=== PATIENT | female | born 1990 | race Caucasian/White ===

== ENCOUNTER → 2022-12-11 | Outpatient (CLI) | payer OTHER ==
--- NOTE | 2022-12-11 17:10 | Diagnostic Imaging Report ---
INDICATION: . COMPARISON: None. TECHNIQUE: Multiple real-time grayscale images were obtained over the gravid uterus. FINDINGS: The cervix measures 3.8 cm in length. No funneling is seen. The placenta is about 3.1 cm away from the internal os and is located posteriorly. There is no evidence of previa. There is a single live intrauterine gestation in variable presentation, beginning in breech and ending in cephalic. The heart rate measures 132 BPM. The amniotic fluid index measures 12.6 cm. Anatomic survey is suboptimal due to maternal body habitus. Four-chamber heart is suboptimally visualized. The stomach is seen. The kidneys are seen. The bladder is seen. The spine is not well seen. The cerebellum and cisterna magna are seen. The lateral ventricle is seen. Umbilical arteries are seen, consistent with a three-vessel cord. The cord insertion is seen. Biometrical measurements are as follows: Biparietal 4.25 cm, age 19 weeks 0 days. Head circumference 16.41 cm, age 19 weeks 0 days. Abdominal circumference 14.24 cm, age 19 weeks 5 days. Femur length 3.33 cm, age 20 weeks 3 days. Sonographic estimate age: 19 weeks 5 days. Sonographic estimated date of delivery: 05/02/2023. Estimated Weight: 318 gm (+/- 47 gm). LMP percentile: 38%. heart rate: 132 beats per minute. number: 1 of 1. IMPRESSION: 1. Single live intrauterine gestation measuring at 19 weeks and 5 days which is within range of the clinical dates. 2. No abnormality seen on anatomic survey. The four-chamber heart and spine are suboptimally visualized. Dictated by: Dictated on workstation # [id number]
== END ==
LOC: RAD 13:24
PROVIDERS: ATTEND Nurse Practitioner Women's Health
DX: Z34.02 Encounter for supervision of normal first pregnancy, second trimester (principal); Z3A.19 19 weeks gestation of pregnancy
CPT/HCPCS: 76805

== ENCOUNTER 2023-04-30 06:36 | Inpatient (IN) | payer OTHER ==
[2023-04-30] VITALS (80 sets, daily range): BP systolic 90–139; BP diastolic 49–90
[~2023-04-30] VITALS: Ht 168 cm; Wt 129.2 kg
[2023-04-30] MEDS ORDERED: LIDOCAINE/EPI 2% 1:200,00 (XYLOCAINE) 20 ML VIAL INJ PRN (07:30)
[2023-04-30] MEDS ORDERED: D5 LR IV SOLUTION 1,000 ML IV SCH (07:30)
[2023-04-30] MEDS ORDERED: D5 LR IV SOLUTION 1,000 ML IV ONE (07:33)
[2023-04-30 07:35] LABS: BASOPHILS % (AUTO) 0 % (0-10); EOSINOPHILS # (AUTO) 0.1 10^3/uL (0.0-0.3); EOSINOPHILS % (AUTO) 1 % (0-10); HEMATOCRIT 33 % (35-52); HEMOGLOBIN 11.7 g/dL (11.5-16.0); LYMPHOCYTES # (AUTO) 2.1 10^3/uL (1.0-4.0); LYMPHOCYTES % (AUTO) 18 % (12-44); MEAN CORPUSCULAR HEMOGLOBIN 33 pg (25-34); MEAN CORPUSCULAR HGB CONC 35 g/dL (32-36); MEAN CORPUSCULAR VOLUME 93 fL (80-99); MEAN PLATELET VOLUME 9.9 fL (9.0-12.2); MONOCYTES # (AUTO) 0.9 10^3/uL (0.0-1.0); MONOCYTES % (AUTO) 8 % (0-12); NEUTROPHILS # (AUTO) 8.3 10^3/uL (1.8-7.8); NEUTROPHILS % (AUTO) 73 % (42-75); PLATELET COUNT 204 10^3/uL (130-400); WHITE BLOOD COUNT 11.4 10^3/uL (4.3-11.0)
--- NOTE | 2023-04-30 07:55 | History & Physical-OB ---
OB - Chief Complaint & HPI Date/Time Date of Admission: Date of Admission: Apr 30, 2023 at 06:36 Date seen by a Provider: Apr 30, 2023 Time Seen by a Provider: 07:55 Chief Complaint/History OB-Reason for Admission/Chief: Induction of Labor Hx : 3 Hx Para: 2 Expected Date of Delivery: Apr 30, 2023 Gestational Age in Weeks: 40 Gestational Age in Days: 0 Indication for induction: post dates Admission Nurse Assessment Rev: Yes History of Labs O pos Antibody neg RI RPR NR HBsAg NR HIV NR GC neg GBS neg Allergies and Home Medications Allergies Coded Allergies: No Known Drug Allergies (Unverified , 04/30/23) Patient Home Medication List Home Medication List Reviewed: Yes OB - History Hx of Present Care: Yes Ultrasounds: Normal mid trimester US Obstetrical Complications: None Medical Complications: None Patient Past Medical History nc OB - Admission Exam Physical Exam HEENT: NCAT Heart: Rhythm Normal Abdomen: Gravid Extremities: Normal Reflexes: Normal Cervical Dilatation: 3cm Effacement: 75% Station: -1 Membranes: Intact Heart Rate: 130's Accelerations: Accelerations Present Decelerations: No Decelerations Short Term Variability: Present Pot Tender Variability: Average (6-25) Contractions on Admission: 6-10 Minutes Apart Intensity: Mild Barriga Scoring Tool (Modified) Dilation (cm): 3-4cm (2) Effacement (%): 51-79% (2) Descent/Station: -1,0 (2) Cervix Consistency: Soft (2) Cervix Position: Anterior (2) Barriga Score: 12 Labs Laboratory Tests Test 04/30/23 07:15 Range/Units White Blood Count 11.4 H 4.3-11.0 10^3/uL Red Blood Count 3.59 L 3.80-5.11 10^6/uL Hemoglobin 11.7 11.5-16.0 g/dL Hematocrit 33 L 35-52 % Mean Corpuscular Volume 93 80-99 fL Mean Corpuscular Hemoglobin 33 25-34 pg Mean Corpuscular Hemoglobin Concent 35 32-36 g/dL Red Cell Distribution Width 13.4 10.0-14.5 % Platelet Count 204 130-400 10^3/uL Mean Platelet Volume 9.9 9.0-12.2 fL Immature Granulocyte % (Auto) 0 % Neutrophils (%) (Auto) 73 42-75 % Lymphocytes (%) (Auto) 18 12-44 % Monocytes (%) (Auto) 8 0-12 % Eosinophils (%) (Auto) 1 0-10 % Basophils (%) (Auto) 0 0-10 % Neutrophils # (Auto) 8.3 H 1.8-7.8 10^3/uL Lymphocytes # (Auto) 2.1 1.0-4.0 10^3/uL Monocytes # (Auto) 0.9 0.0-1.0 10^3/uL Eosinophils # (Auto) 0.1 0.0-0.3 10^3/uL Basophils # (Auto) 0.0 0.0-0.1 10^3/uL Immature Granulocyte # (Auto) 0.0 0.0-0.1 10^3/uL Syphilis Total Antibody Negative Negative OB - Assessment/Plan/Diagnosis Assessment Assessment: induction of labor Admission Dx 32 yo @ 40.0 weeks GBS neg Admission Status: Inpatient Order (span 2 midnights) Reason for Inpatient Admission: IOL at 40 weeks Plan Plan: Induction Induction Method: JERROD STEWART DO Apr 30, 2023 07:55
[2023-04-30] MEDS ORDERED: OXYTOCIN PRE-MIX DRIP 500 ML IV SCH ×2 (08:00→08:30)
[2023-04-30] MEDS ORDERED: PNV-9 PO (08:07)
[2023-04-30] MEDS ORDERED: OMEP40CA6 PO (08:07)
[2023-04-30] MEDS ORDERED: ASPI-999 PO (08:08)
[2023-04-30] MEDS ORDERED: fentaNYL 2 mcg/ml BUPIVA 0.125 100 ML ONE (11:51)
[2023-04-30] MEDS ORDERED: METOCLOPRAMIDE INJ 10 MG/2 ML (REGLAN) IV PRN (13:15)
[2023-04-30] MEDS ORDERED: LACTATED RINGERS 1,000 ML IV SCH (13:15)
[2023-04-30] MEDS ORDERED: fentaNYL 2 mcg/ml BUPIVA 0.125 100 ML EPI SCH (13:15)
[2023-04-30] MEDS ORDERED: NALOXONE 0.4 MG/ML 1 ML (NARCAN) VIAL IV PRN ×3 (13:15→19:45)
[2023-04-30] MEDS ORDERED: ONDANSETRON 4 MG/2 ML (SDV) Z0FRAN IV PRN (13:15)
[2023-04-30] MEDS ORDERED: diphenhydrAMINE 50 MG/ML INJ (BENADRYL) IV PRN (13:15)
[2023-04-30] MEDS ORDERED: CATHETER FLUSH 10 ML SYR IV SCH ×2 (14:00→22:00)
[2023-04-30] MEDS: OXYTOCIN PRE-MIX DRIP 500 ML IV SCH ×2 (19:28→19:56)
[2023-04-30] MEDS ORDERED: WITCH HAZEL(TUCKS) 40 EA JAR TOP PRN (19:45)
[2023-04-30] MEDS ORDERED: DIBUCAINE 1% OINTMENT 28 GM TUBE TOP PRN (19:45)
[2023-04-30] MEDS ORDERED: MEASLES,MUMPS,RUBELLA 1 EA INJ SQ ONE (19:45)
[2023-04-30] MEDS ORDERED: TETANUS,DIPTH,PERTUSS P/F (BOOSTRIX) 0.5 ML VIAL IM ONE (19:45)
[2023-04-30] MEDS ORDERED: BENZOCAINE/MENTHOL (DERMOPLAST) 56 ML CAN TP PRN (19:45)
--- NOTE | 2023-04-30 19:48 | OB Labor & Delivery Record ---
L&D History Date of Service Date of Service: Apr 30, 2023 History Expected Date of Delivery: Apr 30, 2023 Gestational Age in Weeks: 40 Hx : 3 Hx Para: 2 Complications Events: Routine care Operative Indications (Cesarea: N/A-Vaginal Delivery Intrapartal Events: None L&D Stage1 Stage One Onset of Labor - Date: Apr 30, 2023 Monitors and Tracing Monitor Mode: Internal Heart Rate: 135 Monitor Accelerations: Uniform Monitor Decelerations: Variable Charter Representative Variability: Average (6-10) Short Term Variability: Present Presentation: Vertex Vital Signs VS - Last 72 Hours, by Label 04/30/23 04/30/23 04/30/23 04/30/23 07:45 09:00 09:05 09:15 Temp 36.4 36.4 Pulse 89 88 90 86 Resp 18 18 B/P (MAP) 126/66 (86) 119/75 (90) 118/73 (88) Pulse Ox 98 98 O2 Delivery Room Air Room Air 04/30/23 04/30/23 04/30/23 04/30/23 09:30 09:45 10:00 10:15 Pulse 81 81 87 78 B/P (MAP) 119/61 (80) 110/62 (78) 108/62 (77) 116/64 (81) 04/30/23 04/30/23 04/30/23 04/30/23 10:30 10:45 11:00 11:15 Temp 36.9 Pulse 81 82 87 89 B/P (MAP) 119/71 (87) 118/66 (83) 117/62 (80) 138/68 (91) 04/30/23 04/30/23 04/30/23 04/30/23 11:30 11:45 12:00 12:15 Pulse 87 82 80 81 B/P (MAP) 134/72 (92) 134/72 (92) 128/69 (88) 125/70 (88) 04/30/23 04/30/23 04/30/23 04/30/23 12:30 12:33 12:36 12:39 Pulse 91 85 97 91 Resp 18 18 18 18 B/P (MAP) 131/85 (100) 127/75 (92) 136/84 (101) 124/73 (90) Pulse Ox 99 99 96 O2 Delivery Room Air Room Air Room Air 04/30/23 04/30/23 04/30/23 04/30/23 12:42 12:45 12:48 12:51 Pulse 96 83 88 92 Resp 18 18 18 18 B/P (MAP) 114/65 (81) 113/60 (77) 120/65 (83) 123/67 (85) Pulse Ox 97 98 98 O2 Delivery Room Air Room Air Room Air 04/30/23 04/30/23 04/30/23 04/30/23 12:54 13:02 13:07 13:12 Pulse 82 86 86 87 Resp 18 18 18 18 B/P (MAP) 114/63 (80) 119/61 (80) 115/58 (77) 114/58 (76) Pulse Ox 98 97 97 97 O2 Delivery Room Air Room Air Room Air Room Air 04/30/23 04/30/23 04/30/23 04/30/23 13:17 13:22 13:27 13:32 Pulse 88 81 80 83 Resp 18 18 18 18 B/P (MAP) 115/61 (79) 125/65 (85) 114/58 (76) 113/60 (77) Pulse Ox 98 98 99 98 O2 Delivery Room Air Room Air Room Air Room Air 04/30/23 04/30/23 04/30/23 04/30/23 13:37 13:42 13:47 13:52 Pulse 86 84 87 88 Resp 18 18 18 18 B/P (MAP) 123/58 (79) 119/63 (81) 114/57 (76) 113/62 (79) Pulse Ox 99 98 98 97 O2 Delivery Room Air Room Air Room Air Room Air 04/30/23 04/30/23 04/30/23 04/30/23 13:57 14:02 14:07 14:12 Pulse 75 76 77 86 Resp 18 18 18 18 B/P (MAP) 95/54 (68) 105/51 (69) 100/52 (68) 105/51 (69) Pulse Ox 97 98 96 98 O2 Delivery Room Air Room Air Room Air Room Air 04/30/23 04/30/23 04/30/23 04/30/23 14:17 14:22 14:27 14:32 Pulse 77 80 82 78 Resp 18 18 18 18 B/P (MAP) 103/53 (70) 103/54 (70) 105/52 (69) 100/50 (67) Pulse Ox 97 97 96 97 O2 Delivery Room Air Room Air Room Air Room Air 04/30/23 04/30/23 04/30/23 04/30/23 14:37 14:42 14:47 14:52 Pulse 73 99 77 77 Resp 18 18 B/P (MAP) 100/50 (67) 102/57 (72) 100/58 (72) 95/54 (68) Pulse Ox 96 99 98 98 O2 Delivery Room Air Room Air Room Air Room Air 04/30/23 04/30/23 04/30/23 04/30/23 15:02 15:07 15:12 15:17 Pulse 77 76 82 76 B/P (MAP) 90/51 (64) 99/52 (68) 107/52 (70) 94/49 (64) Pulse Ox 97 97 O2 Delivery Room Air Room Air 04/30/23 04/30/23 04/30/23 04/30/23 15:22 15:27 15:32 15:37 Pulse 78 75 79 78 B/P (MAP) 98/54 (69) 92/55 (67) 105/54 (71) 104/53 (70) 04/30/23 04/30/23 04/30/23 04/30/23 15:42 15:47 15:52 15:57 Pulse 77 76 79 82 B/P (MAP) 96/54 (68) 101/51 (68) 100/52 (68) 101/51 (68) 04/30/23 04/30/23 04/30/23 04/30/23 16:15 16:30 16:45 17:00 Pulse 86 80 82 95 B/P (MAP) 137/70 (92) 134/70 (91) 129/74 (92) 120/63 (82) 04/30/23 04/30/23 04/30/23 04/30/23 17:15 17:30 17:45 18:00 Temp 37.9 Pulse 93 90 92 91 B/P (MAP) 126/73 (90) 129/65 (86) 116/63 (80) 120/59 (79) 04/30/23 04/30/23 04/30/23 04/30/23 18:15 18:30 18:45 19:00 Pulse 86 89 91 89 B/P (MAP) 139/78 (98) 128/71 (90) 103/56 (72) 105/58 (74) Rupture of Membranes Spontaneous Ruture of Membrane: No Amniotic Membrane Rupture Time: 07:55 Amniotic Membrane Fluid Desc.: Clear Vaginal Bleeding Description: Normal Show Induction/Anesthesia Epidural Cath Placement - Time: 1231 Progress/Notes Patient admitted for postdates IOL. Arom performed followed by pitocin augmentation to max dose of 16 mu. She progressed with epidural analgesia to complete and + 2 station. L&D Stage2 Stage Two Stage II Date: Apr 30, 2023 Monitors and Tracing Monitor Mode: External Heart Rate: 135 Monitor Accelerations: Uniform Monitor Decelerations: Variable Custodial Variability: Average (6-10) Short Term Variability: Present Position: Right Occiput Anterior Presentation: Vertex Cord Descript/Complications Cord Vessel Description: 3 Vessels Delivery Type Delivery Method: Spontaneous Vaginal Anterior Shoulder: Left Episiotomy/Perineal Laceration Laceraction(s)/Extensions: Yes Episiotomy Description: Perineal Extension/lac, 1st degree (laceration repaired using 3-0 rapide vicryl in usual fashion.) Condition of Infant Delivery 1 minute Comment: 7 5 minute Comment: 9 Notes Live female weight pending. Condition of Condition of Infant: Living Exam: No Observed Abnormalities Resuscitation Resuscitation: N/A - Spontaneous Resp L&D Stage3 Stage Three Stage III Date: Apr 30, 2023 Pictocin Pitocin Administration mu/min: 16 Pitocin ml/hr: 16 Pitocin Administration Comment: 30 mu wide open after delivery of placenta Placenta Delivery Placenta Delivery: Spontaneous Delivery Summary Summary Estimated blood loss (mL): 300 Attending at delivery: Jerrod Ferrell DO Condition of Delivery Examined: Cervix Examined, Uterus Explored Post Hemorrhage: No Condition of Mother stable Condition of (s) stable JERROD FERRELL DO Apr 30, 2023 19:48
[2023-04-30] MEDS: IBUPROFEN 600 MG (MOTRIN) TAB PO SCH (22:15)
[2023-04-30] MEDS: ACETAMINOPHEN 500 MG TAB (TYLENOL) PO SCH (22:15)
[2023-04-30] MEDS: DOCUSATE SODIUM 100 MG (COLACE) CAP PO SCH (22:15)
[2023-05-01 01:29] VITALS: BP 118/65
[2023-05-01] MEDS: ACETAMINOPHEN 500 MG TAB (TYLENOL) PO SCH ×4 (03:43→22:35)
[2023-05-01] MEDS: IBUPROFEN 600 MG (MOTRIN) TAB PO SCH ×4 (03:43→22:35)
[2023-05-01 05:24] LABS: BASOPHILS # (AUTO) 0.1 10^3/uL (0.0-0.1); BASOPHILS % (AUTO) 0 % (0-10); EOSINOPHILS # (AUTO) 0.2 10^3/uL (0.0-0.3); EOSINOPHILS % (AUTO) 1 % (0-10); HEMATOCRIT 33 % (35-52); HEMOGLOBIN 11.6 g/dL (11.5-16.0); LYMPHOCYTES # (AUTO) 2.6 10^3/uL (1.0-4.0); LYMPHOCYTES % (AUTO) 13 % (12-44); MEAN CORPUSCULAR HEMOGLOBIN 32 pg (25-34); MEAN CORPUSCULAR HGB CONC 35 g/dL (32-36); MEAN CORPUSCULAR VOLUME 93 fL (80-99); MEAN PLATELET VOLUME 9.9 fL (9.0-12.2); MONOCYTES # (AUTO) 1.4 10^3/uL (0.0-1.0); MONOCYTES % (AUTO) 7 % (0-12); NEUTROPHILS # (AUTO) 15.5 10^3/uL (1.8-7.8); NEUTROPHILS % (AUTO) 78 % (42-75); PLATELET COUNT 188 10^3/uL (130-400); WHITE BLOOD COUNT 19.8 10^3/uL (4.3-11.0)
[2023-05-01 06:17] LABS: LYMPHOCYTES % (MANUAL) 15 %; MONOCYTES % (MANUAL) 5 %; NEUTROPHILS % (MANUAL) 80 %; RBC MORPH NORMAL
[2023-05-01] MEDS ORDERED: PRENATAL VITAMIN 1 EA TAB PO SCH (07:00)
--- NOTE | 2023-05-01 07:17 | Postpartum Progress Note ---
Note Note Day # 1 Subjective: Patient is without complaints. Ambulating, voiding. Tolerating a regular diet without nausea or vomiting. Normal lochia. Pain is well controlled with oral pain medications. Objective: Physical Exam: General - Alert and oriented, no apparent distress Abdomen - Soft, appropriately tender to palpation, non-distended, fundus firm at umbilicus Extremities - no edema, negative Nik's bilaterally Assessment: PPD 1 NVD Plan: Routine care. Encourage breast feeding. Encourage ambulation. Ferrous sulfate supplementation. Plan for discharge tomorrow Vitals - Labs Vital Signs - I&O Vital Signs Date Time Temp Pulse Resp B/P (MAP) Pulse Ox O2 Delivery O2 Flow Rate FiO2 05/01/23 01:29 36.0 84 18 118/65 (82) 97 Room Air 04/30/23 21:11 37.5 102 119/58 (78) 04/30/23 20:56 93 119/56 (77) 04/30/23 20:41 95 122/59 (80) 04/30/23 20:26 96 106/65 (79) 04/30/23 20:11 92 104/59 (74) 04/30/23 19:56 88 118/56 (76) 04/30/23 19:41 99 103/52 (69) 04/30/23 19:26 37.5 89 137/90 (106) 04/30/23 19:00 89 105/58 (74) 04/30/23 18:45 91 103/56 (72) 04/30/23 18:30 89 128/71 (90) 04/30/23 18:15 86 139/78 (98) 04/30/23 18:00 91 120/59 (79) 04/30/23 17:45 37.9 92 116/63 (80) 04/30/23 17:30 90 129/65 (86) 04/30/23 17:15 93 126/73 (90) 04/30/23 17:00 95 120/63 (82) 04/30/23 16:45 82 129/74 (92) 04/30/23 16:30 80 134/70 (91) 04/30/23 16:15 86 137/70 (92) 04/30/23 15:57 82 101/51 (68) 04/30/23 15:52 79 100/52 (68) 04/30/23 15:47 76 101/51 (68) 04/30/23 15:42 77 96/54 (68) 04/30/23 15:37 78 104/53 (70) 04/30/23 15:32 79 105/54 (71) 04/30/23 15:27 75 92/55 (67) 04/30/23 15:22 78 98/54 (69) 04/30/23 15:17 76 94/49 (64) 04/30/23 15:12 82 107/52 (70) 04/30/23 15:07 76 99/52 (68) 97 Room Air 04/30/23 15:02 77 90/51 (64) 97 Room Air 04/30/23 14:52 77 95/54 (68) 98 Room Air 04/30/23 14:47 77 100/58 (72) 98 Room Air 04/30/23 14:42 99 18 102/57 (72) 99 Room Air 04/30/23 14:37 73 18 100/50 (67) 96 Room Air 04/30/23 14:32 78 18 100/50 (67) 97 Room Air 04/30/23 14:27 82 18 105/52 (69) 96 Room Air 04/30/23 14:22 80 18 103/54 (70) 97 Room Air 04/30/23 14:17 77 18 103/53 (70) 97 Room Air 04/30/23 14:12 86 18 105/51 (69) 98 Room Air 04/30/23 14:07 77 18 100/52 (68) 96 Room Air 04/30/23 14:02 76 18 105/51 (69) 98 Room Air 04/30/23 13:57 75 18 95/54 (68) 97 Room Air 04/30/23 13:52 88 18 113/62 (79) 97 Room Air 04/30/23 13:47 87 18 114/57 (76) 98 Room Air 04/30/23 13:42 84 18 119/63 (81) 98 Room Air 04/30/23 13:37 86 18 123/58 (79) 99 Room Air 04/30/23 13:32 83 18 113/60 (77) 98 Room Air 04/30/23 13:27 80 18 114/58 (76) 99 Room Air 04/30/23 13:22 81 18 125/65 (85) 98 Room Air 04/30/23 13:17 88 18 115/61 (79) 98 Room Air 04/30/23 13:12 87 18 114/58 (76) 97 Room Air 04/30/23 13:07 86 18 115/58 (77) 97 Room Air 04/30/23 13:02 86 18 119/61 (80) 97 Room Air 04/30/23 12:54 82 18 114/63 (80) 98 Room Air 04/30/23 12:51 92 18 123/67 (85) 98 Room Air 04/30/23 12:48 88 18 120/65 (83) 04/30/23 12:45 83 18 113/60 (77) 98 Room Air 04/30/23 12:42 96 18 114/65 (81) 97 Room Air 04/30/23 12:39 91 18 124/73 (90) 04/30/23 12:36 97 18 136/84 (101) 96 Room Air 04/30/23 12:33 85 18 127/75 (92) 99 Room Air 04/30/23 12:30 91 18 131/85 (100) 99 Room Air 04/30/23 12:15 81 125/70 (88) 04/30/23 12:00 80 128/69 (88) 04/30/23 11:45 82 134/72 (92) 04/30/23 11:30 87 134/72 (92) 04/30/23 11:15 89 138/68 (91) 04/30/23 11:00 36.9 87 117/62 (80) 04/30/23 10:45 82 118/66 (83) 04/30/23 10:30 81 119/71 (87) 04/30/23 10:15 78 116/64 (81) 04/30/23 10:00 87 108/62 (77) 04/30/23 09:45 81 110/62 (78) 04/30/23 09:30 81 119/61 (80) 04/30/23 09:15 86 118/73 (88) 04/30/23 09:05 36.4 90 18 98 Room Air 04/30/23 09:00 88 119/75 (90) 04/30/23 07:45 36.4 89 18 126/66 (86) 98 Room Air I & O 05/01/23 07:00 Intake Total 3000 ml Balance 3000 ml Labs Laboratory Tests 05/01/23 05:13: White Blood Count 19.8H, Red Blood Count 3.58L, Hemoglobin 11.6, Hematocrit 33L, Mean Corpuscular Volume 93, Mean Corpuscular Hemoglobin 32, Mean Corpuscular Hemoglobin Concent 35, Red Cell Distribution Width 13.4, Platelet Count 188, Mean Platelet Volume 9.9, Immature Granulocyte % (Auto) 1, Neutrophils (%) (Auto) 78H, Lymphocytes (%) (Auto) 13, Monocytes (%) (Auto) 7, Eosinophils (%) (Auto) 1, Basophils (%) (Auto) 0, Neutrophils # (Auto) 15.5H, Lymphocytes # (Auto) 2.6, Monocytes # (Auto) 1.4H, Eosinophils # (Auto) 0.2, Basophils # (Auto) 0.1, Immature Granulocyte # (Auto) 0.1, Neutrophils % (Manual) 80, Lymphocytes % (Manual) 15, Monocytes % (Manual) 5, Blood Morphology Comment NORMAL JERROD FERRELL DO May 01, 2023 07:17
[2023-05-01 08:15] VITALS: BP 122/79
[2023-05-01] MEDS: DOCUSATE SODIUM 100 MG (COLACE) CAP PO SCH ×2 (08:16→22:13)
[2023-05-01] MEDS ORDERED: FERROUS SULF 325 MG (IRON) TAB PO SCH (09:00)
--- NOTE | 2023-05-01 09:18 | Discharge Inst-Women's Service ---
Discharge Inst-Women's Serv Depart Medication/Instructions New, Converted or Re-Newed RX: Transmitted to Pharmacy Final Diagnosis PPD 1 NVD Problems Reviewed?: Yes Consults/Follow Up Additional Follow Up: Yes Orders/Referrals Dr. Ferrell in 6 weeks Activity Activity: Activity as Tolerated Driving Instructions: No Driving for 1 Week NO SMOKING: NO SMOKING Nothing Inside Vagina: No Douching, No Onsted, No Tampons Diet Discharge Diet: No Restrictions Symptoms to Report to : Bleeding Excessive, Pain Increased, Fever Over 101 Degrees F, Vaginal Bleeding Increase, Questions/Concerns For Any Problems or Questions: Contact Your Physician JERROD FERRELL DO May 01, 2023 09:18
[2023-05-01] MEDS ORDERED: FERR325T24 PO (09:20)
[2023-05-01] MEDS ORDERED: ACET-93 PO (09:20)
[2023-05-01] MEDS ORDERED: DIBU30OI TOP (09:20)
[2023-05-01] MEDS ORDERED: DOCU100C37 PO (09:20)
[2023-05-01] MEDS ORDERED: IBUP-844 PO (09:20)
--- NOTE | 2023-05-01 09:24 | Anesthesia-Regional Post-Op ---
Regional Patient Condition Mental Status: Alert, Oriented x3 Circulation: Same as Pre-Op Headache: Absent Sensation: Full Recovery Motor Block: Absent Post Op Complications Complications None Follow Up Care/Instructions Patient Instructions None needed. Anesthesia/Patient Condition Patient is doing well, no complaints, stable vital signs, no apparent adverse anesthesia problems. No complications reported per nursing. ROXANA BARBER CRNA May 01, 2023 09:24
[2023-05-01 12:00] VITALS: BP 117/65
[2023-05-01 16:04] VITALS: BP 134/77
[2023-05-01 22:13] VITALS: BP 135/74
== END 2023-05-01 22:35 | disposition home or self-care (01) | DRG 807 ==
LOC: LDRP 06:36
PROVIDERS: ADMIT Obstetrics & Gynecology; ATTEND Obstetrics & Gynecology
PROC: 10E0XZZ Delivery of Products of Conception, External Approach (ICD-10-PCS; principal; 2023-04-30)
PROC: 0W8NXZZ Division of Female Perineum, External Approach (ICD-10-PCS; 2023-04-30)
PROC: 0HQ9XZZ Repair Perineum Skin, External Approach (ICD-10-PCS; 2023-04-30)
PROC: 10907ZC Drainage of Amniotic Fluid, Therapeutic from Products of Conception, Via Natural or Artificial Opening (ICD-10-PCS; 2023-04-30)
DX: O48.0 Post-term pregnancy (principal); Z37.0 Single live birth; Z3A.40 40 weeks gestation of pregnancy; Z28.310 Unvaccinated for COVID-19; O70.0 First degree perineal laceration during delivery
CPT/HCPCS: 36415; 85007; 85025; 85027; 86780; 86850; 86900; 86901